=== PATIENT | female | born 1925 | race Caucasian/White ===

== ENCOUNTER 2017-08-03 12:56 | Emergency (ER) | payer OTHER ==
--- NOTE | 2017-08-03 13:59 | CPEKG ---
Heart Rate: 99 RR Interval: 606 QRSD Interval: 104 QT Interval: 344 QTC Interval: 442 QRS [place]: -58 T Wave [place]: 81 EKG Severity - ABNORMAL ECG - EKG Impression: ATRIAL FIBRILLATION EKG Impression: MULTIFORM VENTRICULAR PREMATURE COMPLEXES EKG Impression: LAD, CONSIDER LAFB OR INFERIOR INFARCT EKG Impression: ANTERIOR INFARCT, AGE INDETERMINATE EKG Impression: ATRIAL FIBRILLATION HAS REPLACED NORMAL SINUS RHYTHM ON PRIOR ECG Electronically Signed By: Álvaro Flor 08-Aug-2017 11:29:04
[2017-08-03 14:03] LABS: PLATELET COUNT 248 10^3/uL (150-400)
--- NOTE | 2017-08-03 14:06 | EDPHY ---
HPI/HX/ROS/PE/MDM Narrative: CHIEF COMPLAINT: Pleuritic pain HPI: The patient is an 89 y/o female with end-stage CHF and history of PE arriving with her family member complaining of pleuritic pain worsening over the last two weeks. She is currently in palliative care for her CHF and has a home care nurse that visits regularly. Two weeks ago she developed left anterior pleuritic pain that is much worse with any deep inspiration. She reports symptoms feel similar to a prior PE on the right side. She also has some mild nausea and associated progressive weakness since the pain began. She denies fever, vomiting, abdominal pain, diarrhea, cough, cold, recent illness, or recent trauma. She is on aspirin, but no anticoagulants. REVIEW OF SYSTEMS: Aside from elements discussed in the HPI, a comprehensive 10-point review of systems was reviewed and is negative. PMH: 1. End-stage CHF on palliative care 2. PE, right side. SOCIAL HISTORY: Family member at bedside. Lives in [place]. In palliative care currently. PHYSICAL EXAM: General:Patient is alert, in no acute distress. ENT:Eyes are normal to inspection. ENT inspection normal. Neck: Normal inspection. Full range of motion. Respiratory:No respiratory distress. Breath sounds normal bilaterally. Cardiovascular: Tachycardic regular rate and rhythm. Strong peripheral pulses. Normal cap refill. Abdomen:The abdomen is nontender to palpation. There are no peritoneal signs. Catheter in place. Back: Normal to inspection. No tenderness to palpation. Skin: Normal color. No rash. Warm and dry. Extremities: Normal appearance. Full range of motion. Neuro: Oriented x3. Normal motor function. Normal sensory function. ED Course: This is an 89 y/o female with end-stage CHF who presents with a 2-week history of progressive left-sided pleuritic chest pain and associated fatigue. Exam is unremarkable. Plan for IV, labs, EKG, chest x-ray. The 12 lead EKG was interpreted by myself. See hard copy and/or "tracemaster" electronic copy for interpretation. Chest x-ray: CHF Troponin, BNP, and d-dimer are elevated. Chest CTA ordered. Patient admitted to care of Dr. Roe pending CTA results as patient clearly has elevated troponin and multiple lab abnormalities. - Data Points Imaging: I viewed and interpreted images myself Laboratory Results: Laboratory Results 08/03/17 13:20 06/08/18 13:20 08/03/17 08/03/17 08/03/17 14:20 13:55 13:20 WBC RBC Hgb Hct MCV MCH MCHC RDW Plt Count MPV Neut % (Auto) Lymph % (Auto) [place] % (Auto) Eos % (Auto) Baso % (Auto) Nucleat RBC Rel Count Absolute Neuts (auto) Absolute Lymphs (auto) Absolute Monos (auto) Absolute Eos (auto) Absolute Basos (auto) Absolute Nucleated RBC Immature Gran % Immature Gran # D-Dimer Sodium 137 mEq/L mEq/L (135-145) Potassium 3.6 mEq/L mEq/L (3.3-5.0) Chloride 101 mEq/L mEq/L (97-110) Carbon Dioxide 21 mEq/l L mEq/l (22-31) Anion Gap 15 mEq/L mEq/L (8-16) BUN 28 mg/dL H mg/dL (7-23) Creatinine 1.0 mg/dL mg/dL (0.6-1.0) Estimated GFR 52 Glucose 112 mg/dL H mg/dL (70-100) Calcium 9.2 mg/dL mg/dL (8.5-10.4) POC Troponin I 0.11 ng/mL H ng/mL (0.00-0.08) NT-Pro-B Natriuret Pep 58739 pg/mL H pg/mL (0-450) Urine Color Pending Urine Appearance Pending Urine pH Pending Ur Specific Reads [place] Pending Urine Protein Pending Urine Ketones Pending Urine Blood Pending Urine Nitrate Pending Urine Bilirubin Pending Urine Urobilinogen Pending Ur Leukocyte Esterase Pending Urine Glucose Pending 08/03/17 08/03/17 13:20 13:20 WBC 8.88 10^3/uL 10^3/uL (3.80-9.50) RBC 4.20 10^6/uL 10^6/uL (4.18-5.33) Hgb 12.5 g/dL L g/dL (12.6-16.3) Hct 37.5 % L % (38.0-47.0) MCV 89.3 fL fL (81.5-99.8) MCH 29.8 pg pg (27.9-34.1) MCHC 33.3 g/dL g/dL (32.4-36.7) RDW 17.3 % H % (11.5-15.2) Plt Count 248 10^3/uL 10^3/uL (150-400) MPV 10.0 fL fL (8.7-11.7) Neut % (Auto) 77.7 % H % (39.3-74.2) Lymph % (Auto) 13.1 % L % (15.0-45.0) [place] % (Auto) 6.9 % % (4.5-13.0) Eos % (Auto) 1.1 % % (0.6-7.6) Baso % (Auto) 0.7 % % (0.3-1.7) Nucleat RBC Rel Count 0.0 % % (0.0-0.2) Absolute Neuts (auto) 6.91 10^3/uL H 10^3/uL (1.70-6.50) Absolute Lymphs (auto) 1.16 10^3/uL 10^3/uL (1.00-3.00) Absolute Monos (auto) 0.61 10^3/uL 10^3/uL (0.30-0.80) Absolute Eos (auto) 0.10 10^3/uL 10^3/uL (0.03-0.40) Absolute Basos (auto) 0.06 10^3/uL 10^3/uL (0.02-0.10) Absolute Nucleated RBC 0.00 10^3/uL 10^3/uL (0-0.01) Immature Gran % 0.5 % % (0.0-1.1) Immature Gran # 0.04 10^3/uL 10^3/uL (0.00-0.10) D-Dimer 2.22 ug/mLFEU H ug/mLFEU (0.00-0.50) Sodium Potassium Chloride Carbon Dioxide Anion Gap BUN Creatinine Estimated GFR Glucose Calcium POC Troponin I NT-Pro-B Natriuret Pep Urine Color Urine Appearance Urine pH Ur Specific Reads [place] Urine Protein Urine Ketones Urine Blood Urine Nitrate Urine Bilirubin Urine Urobilinogen Ur Leukocyte Esterase Urine Glucose Point of Care Test Results: Chemistry 08/03/17 13:55 POC Troponin I 0.11 ng/mL H ng/mL (0.00-0.08) General Time Seen by Provider: 08/03/17 13:56 Initial Vital Signs: Initial Vital Signs Temperature (C) 36.5 C 08/03/17 13:05 Heart Rate 132 H 08/03/17 13:05 Respiratory Rate 20 08/03/17 13:05 Blood Pressure 131/89 H 08/03/17 13:05 O2 Sat (%) 93 08/03/17 13:05 O2 Delivery Mode Nasal Cannula O2 (L/minute) 2 Allergies/Adverse Reactions: diltiazem [Diltiazem] Allergy (Intermediate, Verified 08/03/17 13:02) Rash Sulfa (Sulfonamide Antibiotics) Allergy (Intermediate, Verified 08/03/17 13:02) DIFFICULTY BREATHING lisinopril [Lisinopril] Allergy (Verified 08/03/17 13:02) DIFFICULTY BREATHING Home Medications: Medication Instructions Recorded CLOBETASOL PROPIONATE [CLOBEVATE] 1 abram TP DAILY PRN 01/07/15 Herbals/Supplements -Info Only 1 ea PO DAILY 01/07/15 Latanoprost 0.005% [Xalatan 0.005% 1 drops RTEYE HS 01/07/15 (*)] Pramipexole Di-HCl [Pramipexole 0.5 mg PO HS 01/07/15 Dihydrochloride] Aspirin [Aspirin 81mg (*)] 81 mg PO DAILY #0 tab 01/10/15 Levothyroxine [Synthroid 25 mcg 25 mcg PO DAILY06 #30 tab 01/10/15 (*)] Furosemide [Lasix 20 MG (*)] 20 mg PO BIDDIUR 10/09/15 Spironolactone [Aldactone 25 MG 12.5 mg PO DAILY 10/09/15 (*)] Triamcinolone 0.1% [Triamcinolone 1 abram TP TID PRN 10/09/15 0.1% Cream (*)] oxyCODONE IR [Oxycodone Ir (*)] 5 - 10 mg PO Q6 PRN 10/09/15 Amiodarone HCl 08/03/17 D-[place] 08/03/17 Departure - Departure Disposition: [facility] Acute Clinical Impression: Chest pain, Congestive heart failure Condition: Fair Instructions: Heart Failure (ED), Chest Pain (ED) Referrals: [facility] [Other] - As per Instructions Report Scribed for: Mani Colbert Report Scribed by: Sherine Blanco Date of Report: 08/03/17 Time of Report: 14:06 Physician Review and Approval Statement: Portions of this note were transcribed by an ED scribe. I personally performed the history, physical exam, and medical decision making; and confirm the accuracy of the information in the transcribed note.
[2017-08-03] MEDS ORDERED: LIDOCAINE 2% JELLY 20 ML (UROJECT) ONE (14:13)
[2017-08-03] MEDS ORDERED: ONDANSETRON 4 MG/2 ML VIAL IVP PRN (15:09)
[2017-08-03] MEDS ORDERED: ONDANSETRON DISINTEGRATING 4 MG TAB PO PRN (15:09)
[2017-08-03] MEDS ORDERED: ACETAMINOPHEN 325 MG TAB PO PRN (15:09)
[2017-08-03] MEDS ORDERED: IOPAMIDOL (ISOVUE 370) 100 ML BTL IV ONE (15:14)
[2017-08-03 16:06] VITALS: BP 130/92
--- NOTE | 2017-08-03 17:02 | GHP ---
[f rep st] HISTORY AND PHYSICAL DATE OF ADMISSION: 08/03/2017 PRIMARY CARE PHYSICIAN: Torsten. CHIEF COMPLAINT: Left-sided chest pain. HISTORY OF PRESENT ILLNESS: A pleasant 89-year-old female with congestive heart failure, hypertension, and history of blood clot, on palliative care, who is presenting with left-sided chest pain. This has been present for 2 weeks. It is worse with deep inspiration. Feels similar to the time she had a clot on the right. She has significant dyspnea at baseline per her and her daughter. She gets short of breath just with eating. She is followed by [facility]. They visit her once a week. She denies any fevers, chills, or sweats. She has chronic swelling in her feet. This has not changed. Denies any dizziness. Has noticed some mild nausea. Has not had any increased need for oxygen. No associated numbness in the hands. No pain in the jaw, neck, or radiation to the arm. REVIEW OF SYSTEMS: I completed a 10-point review of systems, negative except as noted in HPI. PAST MEDICAL HISTORY: 1. Chronic Montiel catheter. 2. Systolic heart failure. 3. History of right-sided pulmonary embolism. 4. Atrial fibrillation. 5. Chronic hypoxemic respiratory failure, on 2 L at night. 6. Hypothyroidism. 7. C. diff. PAST SURGICAL HISTORY: Tonsillectomy, left hip replacement, right hip replacement, fecal transplant x2. SOCIAL HISTORY: Her handicapped son lives with her. Daughter is very involved. Denies alcohol, tobacco or illicits. Is compliant with her walker. HOME MEDICATIONS: Oxycodone 5-10 mg q.6 hours p.r.n., triamcinolone, Aldactone 12.5 daily, pramipexole 0.5 mg at bedtime, Synthroid 25 mcg, Xalatan eyedrops, herbal supplement, Lasix 20 mg twice daily, aspirin, amiodarone. ALLERGIES: Diltiazem, sulfa, lisinopril. PHYSICAL EXAMINATION: VITAL SIGNS: Temperature 36.5, blood pressure is 131/ 89. Heart rate initially 132, now 107. Respirations 16, 94% on 2 L. GENERAL: Elderly female, lying in bed, in no acute distress. HEENT: PERRLA, moist mucous membranes. CV: Tachy, irregularly irregular. Trace pedal edema. Has a component of reproducible left-sided chest pain. LUNGS: Diminished, but no overt crackles. GI: Soft, nontender, nondistended. Positive bowel sounds. : Montiel in place, with clear yellow urine. MUSCULOSKELETAL: Moving all 4 extremities. NEUROLOGIC: 2 through 12 intact. PSYCHIATRIC: Alert and oriented x3. LABORATORY DATA: WBCs 8, hemoglobin 12, hematocrit 37, platelets 248. D-dimer 2.2. Sodium 137, potassium 3.4, chloride 101, carbon dioxide 21, BUN 28, creatinine 1, glucose 112. BNP is 12,100, troponin 0.11. CTA: No evidence of PE. Severe cardiomegaly, minimal left pleural effusion. Mild atelectasis or scarring in the left upper lobe. Chest x-ray is personally reviewed by me. Left basilar opacity. No allen edema. EKG personally reviewed by me. Atrial fibrillation, Q-waves in anterior leads. ASSESSMENT/PLAN: 1. Left-sided chest pain. Differential includes ACS, PE, musculoskeletal, or gastroesophageal reflux disease. CT was negative for PE. Troponin was 0.11. Has reproducible component on exam. She is very adamant that if it were her heart, she would not want any further testing, including echocardiogram, stress test or catheterization. She is at peace with letting nature take its course. I had a lengthy conversation with both her and her daughter. She would like to go home at this time, and does not want to pursue further testing or intervention. I think this is very appropriate. She will resume palliative care. Recommend Tylenol and heating pad. 2. Hypothyroidism. Resume levothyroxine. 3. Mildly decompensated systolic heart failure. She has a chronic dyspnea at baseline, per her and her daughter. She is currently under the care of [facility], who can assist with breathlessness. 4. Hypertension. Resume home medications. 5. Atrial fibrillation. She is on amiodarone. She is not on anticoagulation. GOALS: Again, I had a very extensive conversation with patient and daughter. She wants to focus on comfort measures and quality of life. DISPOSITION: Patient is stable for discharge home with her daughter. MEDICATIONS: No changes. FOLLOWUP: [facility]. /[id number]/MODL MTDD
--- NOTE | 2017-08-03 17:33 | GDS ---
[f rep st] DISCHARGE SUMMARY HISTORY: The patient was admitted and discharged from the emergency room after my evaluation. Braden joyce see fully dictated H and P for assessment and plan. DISPOSITION: Patient is stable for discharge home. MEDICATIONS: No new medications. FOLLOW-UP: [facility]. /[id number]/MODL
== END 2017-08-03 17:09 | disposition home or self-care (01) ==
LOC: UNDOADMOB 15:09
DX: R07.89 Other chest pain (principal); I11.0 Hypertensive heart disease with heart failure; I50.23 Acute on chronic systolic (congestive) heart failure
CPT/HCPCS: 71045; 71275; 93005; 99285; Q9967; 84484-PO